=== PATIENT | male | born 1960 | race Caucasian/White ===

== ENCOUNTER 2018-07-25 12:08 | Day surgery (SDC) | payer OTHER ==
[2018-07-25] MEDS ORDERED: DIAZEPAM 5 MG TAB PO ONE (12:11)
[2018-07-25] MEDS ORDERED: NS 1,000 ML IV ONE (12:11)
[2018-07-25] MEDS ORDERED: ASPIRIN EC 325 MG TAB PO ONE ×2 (12:11→12:22)
[2018-07-25] MEDS ORDERED: diphenhydrAMINE 25 MG CAP PO ONE ×2 (12:11→12:22)
[2018-07-25] MEDS ORDERED: FAMOTIDINE 20 MG TAB PO ONE (12:11)
[2018-07-25] MEDS ORDERED: FAMOTIDINE 20 MG TAB ONE (12:22)
[2018-07-25] MEDS ORDERED: DIAZEPAM 5 MG TAB ONE (12:23)
[2018-07-25] MEDS ORDERED: LIDOCAINE 1% 300 MG/30 ML SDV ONE (12:43)
[2018-07-25] MEDS ORDERED: MIDAZOLAM 2 MG/2 ML VIAL ONE (12:44)
[2018-07-25] MEDS ORDERED: VERAPAMIL 5 MG/2 ML VIAL ONE (12:44)
[2018-07-25] MEDS ORDERED: IOPAMIDOL (ISOVUE-370) 150 ML BTL IV ONE (12:44)
[2018-07-25] MEDS ORDERED: HEPARIN 10,000 UNIT/10 ML MDV (1,000 UNIT/ML) ONE (12:44)
[2018-07-25] MEDS ORDERED: fentaNYL 100 MCG/2 ML INJ ONE (12:44)
[2018-07-25 12:49] LABS: PLATELET COUNT 205 10^3/uL (150-400)
[2018-07-25 12:57] LABS: INR 1.02 (0.83-1.16); PROTIME(PATIENT) 13.6 SEC (12.0-15.0)
--- NOTE | 2018-07-25 13:23 | PDPROPOC ---
Sedation Plan of Care Sedation Plan of Care: vital signs stable, mental status noted, patient educated of risks, benefits, alternatives, patient can tolerate sedation ASA Classification: ASA 2 Planned drugs: fentanyl, midazolam Mallampati Score: Class 1 Mallampati Reference Image: Patient passed 3-3-2 rule?: Yes
--- NOTE | 2018-07-25 13:23 | PDHPUP ---
History & Physical Update H&P update statement: This history and physical update is based on an assessment of the patient which was completed after admission or registration (within 24 hours), but prior to the surgery/procedure. H&P update: H&P reviewed & patient examined, no change in patient's condition since H&P completed
--- NOTE | 2018-07-25 14:07 | PDDXCAT ---
Diagnostic Cath Note - . Date: 07/25/18 Forging Machine Operator: Jacinto Indication: Class I/II angina, intolerance to med therapy or failure to respond High-risk criteria on non-invasive testing: stress-induced moderate-size multiple perfusion defects - Procedure Access: right wrist Procedure: left heart catheterization, coronary angiography - Materials Left Heart Cath size: 5F Left Heart Cath materials: pigtail, other ([place] 4) - Findings-Left Heart Catheterization LM: Unobstructed LAD: Unobstructed LCX: Unobstructed RCA: Unobstructed EDP: 15 mm of mercury LVEF: 64 Wall motion: Normal Complications: None Estimated blood loss: <50ml Closure method: TR Band Assessment: Nonobstructive coronary artery disease. Normal left ventricular systolic function with normal filling pressures. No contraindications to proceeding with elective surgery identified by today's examination.
--- NOTE | 2018-07-25 16:02 | CPEKG ---
Test Reason : OPEN Blood Pressure : / mmHG Vent. Rate : 077 BPM Atrial Rate : 078 BPM P-R Int : 149 ms QRS Dur : 088 ms QT Int : 380 ms P-R-T Axes : 072 066 014 degrees QTc Int : 431 ms Sinus rhythm Borderline ST depression, lateral leads Confirmed by Jerry Bermudez ([id number]) on 07/25/2018 4:01:59 PM Referred By: Confirmed By:Jerry Bermudez
== END 2018-07-25 17:33 | disposition home or self-care (01) ==
LOC: FCATH 12:08
PROVIDERS: ATTEND Internal Medicine Interventional Cardiology
DX: I25.10 Atherosclerotic heart disease of native coronary artery without angina pectoris (principal); R94.39 Abnormal result of other cardiovascular function study; R06.09 Other forms of dyspnea; E78.5 Hyperlipidemia, unspecified; Z82.49 Family history of ischemic heart disease and other diseases of the circulatory system
CPT/HCPCS: 93005; 93458; C1769; J1644; J2250; J3010; Q9967

== ENCOUNTER 2018-08-24 18:22 | Emergency (ER) | payer OTHER ==
[2018-08-24 18:37] VITALS: BP 145/97
--- NOTE | 2018-08-24 19:15 | EDPHY ---
H & P Time Seen by Provider: 08/24/18 18:26 HPI/ROS: CHIEF COMPLAINT: Chin laceration HISTORY OF PRESENT ILLNESS: 58-year-old male presents to the emergency department after slip and fall on the ice in his driveway while he was shoveling snow. He reports falling forward onto his hands, struck the left side of his face and TMJ area on the ground and then "bounced" and struck his chin. No loss of consciousness. No significant neck pain. He does feel like he is jaws sore in the left side of his face. Reports feels like his teeth are not quite aligned. No neck pain. No numbness or tingling in his arms or legs. Otherwise was well prior to this event. REVIEW OF SYSTEMS: A comprehensive 10 system review of systems was reviewed and is otherwise negative aside from elements mentioned in the history of present illness and medical decision making. PAST MEDICAL HISTORY: Patient denies. SOCIAL HISTORY: Nonsmoker. VITAL SIGNS: see nurse's notes. GENERAL: Well-developed, well-nourished, in no acute distress. HEENT: Atraumatic head. Face: 1 cm laceration under the chin. Mild tenderness over the left TMJ. No abrasion or swelling on the face. Some discomfort with opening and closing the mouth. No intraoral trauma. No obvious malocclusion. No trauma about the eyes, on the forehead, or on the cheeks. Neck: supple, FROM. LUNGS: Clear to auscultation bilaterally, no wheezes, rhonchi or rales. CARDIAC: Regular rate and rhythm, no rubs, murmurs or gallops. ABDOMEN: Soft, nontender, nondistended, bowel sounds normal. BACK: No CVA tenderness. No vertebral tenderness. EXTREMITIES: No edema, FROM. NEURO: Alert and oriented, grossly nonfocal. SKIN: Warm and dry, no rash. Smoking Status: Never smoked Constitutional: Initial Vital Signs Temperature (C) 36.7 C 08/24/18 18:32 Heart Rate 88 08/24/18 18:32 Respiratory Rate 14 08/24/18 18:32 Blood Pressure 145/97 H 08/24/18 18:32 O2 Sat (%) 93 08/24/18 18:32 O2 Delivery Mode Room Air Allergies/Adverse Reactions: No Known Allergies Allergy (Verified 08/24/18 18:32) Home Medications: Medication Instructions Recorded Atorvastatin Calcium 80 mg PO DAILY 01/17/14 Medical Decision Making ED Course/Re-evaluation: Procedure: Laceration repair. The 1 cm laceration on the chin was anesthetized using Marcaine with epinephrine. The wound was cleaned and irrigated per nursing and tech documentation. Laceration was then draped and explored. There were no deep structures involved. The wound was repaired with 5 0 Ethilon, 3. Simple interrupted. The wound repair was simple. The procedure was performed by myself. Patient is aware the laceration will have a scar. 58-year-old male presents with a chin laceration after slip and fall on the ice. He did strike the side of his face and has pain when opening and closing the jaw and some tenderness over the TMJ. No obvious malocclusion. I doubt fracture to the mandible. Patient did take ibuprofen prior to presentation. Advised to use ibuprofen on a regular basis as well as ice to the TMJ area. If patient's symptoms are not improving rapidly advised to follow up with his dentist or return to the emergency department. Return in 6-7 days for suture removal. Differential Diagnosis: Differential diagnosis for the patient's injury was considered including but not limited to mandible contusion, TMJ injury, abrasion, laceration, fracture, open fracture, or dislocation. Departure - Departure Disposition: Home, Routine, Self-Care Clinical Impression: Chin laceration Qualifiers: Encounter type: initial encounter Qualified Code(s): S01.81XA - Laceration without foreign body of other part of head, initial encounter Facial trauma Qualifiers: Encounter type: initial encounter Qualified Code(s): S09.93XA - Unspecified injury of face, initial encounter Condition: Good Instructions: Care For Your Stitches (ED), Laceration (ED) Additional Instructions: Please take ibuprofen 600 mg every 6-8 hours on a regular basis for the next 24- 36 hr to help with both pain as well as inflammation. Consider applying ice to the jaw on the left side to help with contusion, spasm , and pain. Keep wound clean and dry. Clean suture line with a mixture of hydrogen peroxide and water. Apply a thin layer of antibiotic cream. Dress wound if desired. Suture removal in 7 days. Watch for signs of infection. No soaking wound in water. Showers are ok. No swimming until sutures are removed. Return to emergency department if any concerns regarding infection. Follow up with primary care physician or with a dentist if you continued to have significant discomfort in the jaw. Referrals: Theodore Ko, [Primary Care Provider] - As per Instructions
== END 2018-08-24 19:40 | disposition home or self-care (01) ==
LOC: CED 18:22
PROC: 0HQ1XZZ Repair Face Skin, External Approach (ICD-10-PCS; principal; 2018-08-24)
DX: S01.81XA Laceration without foreign body of other part of head, initial encounter (principal); W00.0XXA Fall on same level due to ice and snow, initial encounter; Y92.008 Other place in unspecified non-institutional (private) residence as the place of occurrence of the external cause; Y99.9 Unspecified external cause status; Y93.89 Activity, other specified
CPT/HCPCS: 99282-ER